=== PATIENT | female | born 1990 | race Caucasian/White ===

== ENCOUNTER 2022-04-24 12:52 | Emergency (ER) | payer BC, MEDICAID ==
[~2022-04-24] VITALS: Ht 162.6 cm; Wt 54.4 kg
--- NOTE | 2022-04-24 13:08 | NUR ---
[email or web address], medical screening exam in progress
[2022-04-24] MEDS ORDERED: KETOROLAC TROMETHAMINE 15 MG INJ IM ONE (13:15)
[2022-04-24] MEDS ORDERED: KETOROLAC TROMETHAMINE 15 MG INJ ONE (13:25)
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
[2022-04-24] MEDS ORDERED: CYCL5TAB PO (13:51)
[2022-04-24] MEDS ORDERED: IBUP-1955 PO (13:51)
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
--- NOTE | 2022-04-24 14:05 | NUR ---
DISCHARGED TO HOME,DISCUSSED AND GIVE DISCHARGE INSTRUCTIONS AND F/U APPT AND PATIENT VERBALIZED UNDERSTAINDING
[2022-04-24 14:47] VITALS: BP 99/69
== END 2022-04-24 14:05 | disposition home or self-care (01) ==
LOC: ER 12:52
DX: M79.10 Myalgia, unspecified site (principal)
CPT/HCPCS: 99283; 71045; 96372; J1885; A4663

== ENCOUNTER 2024-07-02 14:06 | Emergency (ER) | payer OTHER, BC ==
[~2024-07-02] VITALS: Ht 162.6 cm; Wt 49.9 kg
[~2024-07-02 14:06] MED LIST: CYCL5TAB PO; IBUP-1955 PO
[2024-07-02 15:24] LABS: *URINE HCG, QUAL NEGATIVE (NEGATIVE)
[2024-07-02 15:26] LABS: *BILIRUBIN,URIN NEGATIVE (NEGATIVE); *BLOOD, URINE 3+ (NEGATIVE); *CLARITY,URINE CLEAR (CLEAR); *COLOR,URINE YELLOW (YELLOW); *KETONES,URINE NEGATIVE (NEGATIVE); *PROTEIN,URINE NEGATIVE (NEGATIVE); *UROBILINOGEN,URINE 0.2 E.U./dl (NORMAL); LEUKOCYTE ESTERASE ,URINE NEGATIVE (NEGATIVE); NITRITE, URINE NEGATIVE (NEGATIVE); PH,URINE 5.5 (5.0-8.0); UGLUCOSE NEGATIVE (NEGATIVE)
[2024-07-02 15:29] LABS: BACTERIA,URINE FEW /HPF (NONE SEEN); RBC,URINE 50-80 /HPF (0-3); SQUAMOUS EPITHELIAL CELL,UR MODERATE /HPF (NONE SEEN); WBC,URINE 0-3 /HPF (0-3)
[2024-07-02] MEDS ORDERED: NAPR-1164 PO (16:27)
[2024-07-02 16:56] VITALS: BP 110/60; O2SAT 99
== END 2024-07-02 16:56 | disposition home or self-care (01) ==
LOC: ER 14:06
DX: S13.4XXA Sprain of ligaments of cervical spine, initial encounter (principal); R10.2 Pelvic and perineal pain; M54.41 Lumbago with sciatica, right side; Z79.899 Other long term (current) drug therapy; V89.2XXA Person injured in unspecified motor-vehicle accident, traffic, initial encounter; Y93.89 Activity, other specified; Y92.89 Other specified places as the place of occurrence of the external cause; Y99.8 Other external cause status
CPT/HCPCS: 72131; 84703; A4606; A4663